=== PATIENT | female | born 1995 | race Caucasian/White ===

== ENCOUNTER 2016-12-31 15:22 | Emergency (ER) | payer BC, OTHER ==
[~2016-12-31] VITALS: Ht 165.1 cm; Wt 66.0 kg
[2016-12-31 15:26] VITALS: BP 133/69; PULSE 110; RESP 18; TEMP 97.9; O2SAT 99
[2016-12-31] MEDS ORDERED: MIREIUD I-UTERINE (15:28)
[2016-12-31] MEDS ORDERED: ADDE15TA PO (15:28)
[2016-12-31] MEDS ORDERED: methylPREDNISolone SOD SUCC 125 MG/2 ML VIAL IV PUSH ONE (15:30)
[2016-12-31] MEDS ORDERED: diphenhydrAMINE HCL 50 MG/ML VIAL IV PUSH ONE (15:30)
--- NOTE | 2016-12-31 15:37 | PD ---
HPI Chief Complaint: Bite or Sting Time Seen by Provider: 15:29 Travel History International Travel<30 days: No Contact w/Intl Traveler<30days: No Traveled to known affect area: No History of Present Illness HPI This 21-year-old female was bitten by either a bee or wasp that went into her mouth. She drove her immediately. She feels like the area is swollen. She has no history of allergy to insects. Her father has severe allergy to bees. He is not short of breath PFSH Past Medical History ?: Not Social History Tobacco Use: No Allergies-Medications (Allergen,Severity, Reaction): Coded Allergies: Flagyl (Verified Allergy, Intermediate, Hives, 12/31/16) Reported Meds & Prescriptions Reported Meds & Active Scripts Active [place] (Hydrocodone-Acetaminophen) 5-325 mg Tab 1-2 Tab PO Q6H PRN Reported [place] (Levonorgestrel (Iud)) 20 Mcg/24 Hr Iud 52 Mg I-UTERINE ONCE Adderall (Amphetamine-Dextroamphetamine) 15 Mg Tab 15 Mg PO BID Avoid late evening doses. Space doses at least 4 to 6 hours if more than once/day dosing. Review of Systems General / Constitutional: No: Fever, Chills Eyes: No: Diploplia HENT: No: Headaches, Vertigo Cardiovascular: No: Chest Pain or Discomfort, Palpitations Respiratory: No: Cough, Shortness of Breath Gastrointestinal: No: Vomiting, Diarrhea Genitourinary: No: Urgency Musculoskeletal: No: Myalgias Skin: Positive Rash Physical Exam Narrative Well-developed female [-] SKIN: Focused skin assessment warm/dry. No rash HEAD: Atraumatic. Normocephalic. EYES: Pupils equal and round. No scleral icterus. There is bilateral conjunctival injection ENT: No nasal bleeding or discharge. Mucous membranes pink and moist. Inside the mouth there is a small erythematous area on the right side of the soft palate where she was bitten. I do not see any swelling at this time. Airway is patent NECK: Trachea midline. No JVD. CARDIOVASCULAR: Regular rate and rhythm. No murmur appreciated. RESPIRATORY: No accessory muscle use. Clear to auscultation. Breath sounds equal bilaterally. GASTROINTESTINAL: Abdomen soft, non-tender, nondistended. Hepatic and splenic margins not palpable. MUSCULOSKELETAL: No obvious deformities. No clubbing. No cyanosis. No edema. NEUROLOGICAL: Awake and alert. No obvious cranial nerve deficits. Motor grossly within normal limits. Normal speech. PSYCHIATRIC: Appropriate mood and affect; insight and judgment normal. Data Data Last Documented VS Vital Signs Date Time Temp Pulse Resp B/P Pulse Ox O2 Delivery O2 Flow Rate FiO2 12/31/16:17 97 16 110/67 98 12/31/16 16:00 Room Air 12/31/16 15:26 97.9 Orders Methylprednisolone So Succ Inj (Solumedr (12/31/16 15:30) Diphenhydramine Inj (Benadryl Inj) (12/31/16 15:30) Ketorolac Inj (Toradol Inj) (12/31/16 16:00) Morphine Inj (Morphine Inj) (12/31/16 17:00) MDM Medical Decision Making Medical Screen Exam Complete: Yes Emergency Medical Condition: Yes Medical Record Reviewed: Yes Differential Diagnosis Differential includes insect bite, local reaction, allergic reaction Narrative Course Patient has been bitten inside the mouth. She'll be given Benadryl and Solu- Medrol. She will need to be observed for possible airway problem. There is no indication of airway compromise at this time Diagnosis Primary Impression: insect sting to mouth Scripts Hydrocodone-Acetaminophen ([place])5-325 mg Tab1-2 Tab PO Q6H PRN (PAIN) #12 TAB Ref 0 Prov:Peri Gee MD 12/31/16 Barrington Mercado MD December 31, 2016 15:37
[2016-12-31 16:00] VITALS: BP 120/65; PULSE 101; RESP 16; O2SAT 99
[2016-12-31] MEDS ORDERED: KETOROLAC TROMETHAMINE 30 MG/ML (IVP) VIAL IV PUSH ONE (16:00)
--- NOTE | 2016-12-31 16:06 | PD ---
Physical Exam Date Seen by Provider: December 31, 2016 Narrative Care assumed at 16:00 following bee stings to soft palate. Data Data Last Documented VS Vital Signs Date Time Temp Pulse Resp B/P Pulse Ox O2 Delivery O2 Flow Rate FiO2 12/31/16 16:41 16 12/31/16 15:26 97.9 110 133/69 99 Orders Methylprednisolone So Succ Inj (Solumedr (12/31/16 15:30) Diphenhydramine Inj (Benadryl Inj) (12/31/16 15:30) Ketorolac Inj (Toradol Inj) (12/31/16 16:00) MDM Supervised Visit with GEM: No Narrative Course airway patent. will observe for about an hour. 16:45 Resting comfortably. No significant swelling of the oropharynx. No airway compromise. Pain is rated as 3/10. She would like to have some pain medication to take home. Diagnosis Primary Impression: insect sting to mouth Patient Instructions: General Instructions, Insect Bite or Sting (DC) Additional Instruction: Benadryl, 2 every 4 hours until swelling has completely subsided. Popsicles to help with the swelling and pain. Return for any worsening of symptoms. Med/Other Pt SpecificInfo: Prescription(s) given Scripts Hydrocodone-Acetaminophen ([place])5-325 mg Tab1-2 Tab PO Q6H PRN (PAIN) #12 TAB Ref 0 Prov:Peri Gee MD 12/31/16 Disposition: 01 DISCHARGE HOME Condition: Stable Peri Gee MD December 31, 2016 16:06
[2016-12-31] MEDS ORDERED: NORC5TAB PO (16:46)
[2016-12-31] MEDS ORDERED: MORPHINE SULFATE 4 MG/ML INJ IV ONE (17:00)
[2016-12-31 17:17] VITALS: BP 110/67; RESP 16
== END 2016-12-31 17:24 | disposition home or self-care (01) ==
LOC: PHED 15:22
DX: T63.441A Toxic effect of venom of bees, accidental (unintentional), initial encounter (principal); R21 Rash and other nonspecific skin eruption; Z79.899 Other long term (current) drug therapy
CPT/HCPCS: 96374; 96375; 99283; J1200; J1885; J2270; J2930